=== PATIENT | female | born 1960 ===

== ENCOUNTER 2017-07-20 09:29 | Emergency (ER) | payer OTHER, BC ==
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
[2017-07-20 09:58] VITALS: BMI 36.7
[2017-07-20 11:08] VITALS: PULSE 87; O2SAT 98
[2017-07-20] MEDS ORDERED: TDAP Vaccine 0.5 mL Syr IM ONE (11:16)
--- NOTE | 2017-07-20 11:26 | CT ---
PROCEDURE: CT HEAD WITHOUT CONTRAST. HISTORY: r/o ICH and fx COMPARISON: None available. TECHNIQUE: Axial computed tomography images were obtained through the head/brain without intravenous contrast. Radiation dose: Total exam DLP = 909 mGy-cm. This CT exam was performed using one or more of the following dose reduction techniques: Automated exposure control, adjustment of the mA and/or kV according to patient size, and/or use of iterative reconstruction technique. FINDINGS: HEMORRHAGE: No intracranial hemorrhage. BRAIN: No mass effect or edema. No atrophy or chronic microvascular ischemic changes. VENTRICLES: Unremarkable. No hydrocephalus. CALVARIUM: There is a scalp hematoma over the right parietal region. Surgical clips are seen in this area. Unremarkable. PARANASAL SINUSES: Unremarkable as visualized. No significant inflammatory changes. MASTOID AIR CELLS: Unremarkable as visualized. No inflammatory changes. OTHER FINDINGS: None. IMPRESSION: No acute findings
--- NOTE | 2017-07-20 12:53 | RAD ---
PROCEDURE: Radiographs of the right clavicle. HISTORY: r/o fx COMPARISON: None. FINDINGS: RIGHT CLAVICLE: No fracture or focal lesion. JOINTS: Right acromioclavicular and glenohumeral joints are grossly unremarkable. SOFT TISSUES: Grossly unremarkable. OTHER FINDINGS: None. IMPRESSION: Normal radiographs of the right clavicle.
[2017-07-20 13:22] VITALS: BP 130/55; RESP 70; TEMP 98
== END 2017-07-20 13:28 | disposition home or self-care (01) ==
LOC: ED 09:29
DX: S01.01XA Laceration without foreign body of scalp, initial encounter (principal); W18.39XA Other fall on same level, initial encounter; Y92.811 Bus as the place of occurrence of the external cause; Z23 Encounter for immunization